=== PATIENT | female | born 1965 | race Caucasian/White ===

== ENCOUNTER 2021-07-13 11:16 | Emergency (ER) | payer SELFPAY ==
[~2021-07-13] VITALS: Ht 157.5 cm; Wt 50.8 kg
[2021-07-13 13:06] LABS: HEMATOCRIT 43.8 % (37.0-47.0); HEMOGLOBIN 14.1 g/dl (12.0-16.0); MEAN CELL VOLUME 94.8 fL CALC (80.0-100.0); MEAN CORPUSCULAR HGB 30.5 pG CALC (26.0-32.0); MEAN CORPUSCULAR HGB CONC 32.2 g/dL CAL (32.0-36.0); NEUT# 5.18 thou/uL (2.00-7.15); RED BLOOD COUNT 4.62 mill/uL (4.20-5.60); RED CELL DISTRI WIDTH 12.1 % (11.5-15.5)
[2021-07-13 13:12] LABS: ALBUMIN 4.2 g/dL (3.2-5.0); ALKALINE PHOSPHATASE 115 u/l (38-126); ANION GAP 11 (6-22 (CALC)); BILIRUBIN, TOTAL 0.6 mg/dL (0.0-1.4); BUN 6 mg/dL (7-17); BUN/CREATININE RATIO 10 (12-20 (CALC)); CARBON DIOXIDE 32 mmol/l (22-30); CHLORIDE 100 mmol/l (95-108); CREATININE 0.6 mg/dL (0.5-1.0); GFR > 60 ML/MIN (>=60 (CALC)); GFR FOR AFR.AMER. > 60 ML/MIN (>=60 (CALC)); POTASSIUM 4.5 mmol/l (3.5-5.1); SGOT/AST 21 u/l (14-36); SODIUM 139 mmol/l (137-146)
[2021-07-13 17:26] VITALS: BP 126/73
== END 2021-07-13 17:27 | disposition short-term general hospital (02) | DRG 156 ==
LOC: ED 11:16
PROVIDERS: Family Medicine
DX: J38.3 Other diseases of vocal cords (principal); I10 Essential (primary) hypertension; J44.9 Chronic obstructive pulmonary disease, unspecified; F17.210 Nicotine dependence, cigarettes, uncomplicated; R63.4 Abnormal weight loss; Z20.822 Contact with and (suspected) exposure to COVID-19
CPT/HCPCS: Q9967

== ENCOUNTER 2022-06-27 16:19 | Emergency (ER) | payer MEDICAID ==
[~2022-06-27] VITALS: Ht 157.5 cm; Wt 48.0 kg
[2022-06-27] VITALS (9 sets, daily range): BP systolic 90–119; BP diastolic 52–60
[2022-06-27] MEDS ORDERED: CELEBREX100 M1 PO (16:38)
[2022-06-27] MEDS ORDERED: LEVOTHYROXIN75 MCG PO (16:39)
[2022-06-27] MEDS ORDERED: MIDODRINE10 MG PO (16:39)
[2022-06-27] MEDS ORDERED: OXYIR5 MG PO (16:40)
[2022-06-27] MEDS ORDERED: GABAPENTIN100 MG PO (16:41)
[2022-06-27 16:56] LABS: IMMATURE GRANULOCYTES 0.3 % (0.0-5.0); MEAN CELL VOLUME 92.9 fL CALC (80.0-100.0); MEAN CORPUSCULAR HGB 29.4 pG CALC (26.0-32.0); MEAN CORPUSCULAR HGB CONC 31.7 g/dL CAL (32.0-36.0); NEUT# 4.74 thou/uL (2.00-7.15); RED BLOOD COUNT 3.64 mill/uL (4.20-5.60); RED CELL DISTRI WIDTH 17.1 % (11.5-15.5)
[2022-06-27 16:59] LABS: HEMATOCRIT 33.8 % (37.0-47.0); HEMOGLOBIN 10.7 g/dl (12.0-16.0)
[2022-06-27 17:14] LABS: INTERNATIONAL NORMALIZED RATIO 1.1 RATIO (0.7-1.3); PROTHROMBIN TIME 10.5 SECONDS (9.0-12.5)
[2022-06-27 17:15] LABS: ALBUMIN 3.8 g/dL (3.2-5.0); ALKALINE PHOSPHATASE 74 u/l (38-126); ANION GAP 13 (6-22 (CALC)); BILIRUBIN, TOTAL 0.3 mg/dL (0.0-1.4); BUN 10 mg/dL (7-17); BUN/CREATININE RATIO 17 (12-20 (CALC)); CARBON DIOXIDE 22 mmol/l (22-30); CHLORIDE 104 mmol/l (95-108); CREATININE 0.6 mg/dL (0.5-1.0); GFR FOR AFR.AMER. > 60 ML/MIN (>=60 (CALC)); GFR OTHER RACES > 60 ML/MIN (>=60 (CALC)); POTASSIUM 3.8 mmol/l (3.5-5.1); SGOT/AST 20 u/l (14-36); SODIUM 135 mmol/l (137-146); TOTAL PROTEIN 6.3 g/dL (6.3-8.2)
== END 2022-06-27 20:56 | disposition short-term general hospital (02) ==
LOC: ED 16:19
PROVIDERS: Family Medicine
DX: K92.0 Hematemesis (principal); C32.9 Malignant neoplasm of larynx, unspecified; J45.909 Unspecified asthma, uncomplicated; F17.210 Nicotine dependence, cigarettes, uncomplicated; Z93.0 Tracheostomy status; Z90.02 Acquired absence of larynx; Z93.1 Gastrostomy status
CPT/HCPCS: J2354; S0164

== ENCOUNTER 2022-07-24 11:41 | Emergency (ER) | payer MEDICAID ==
[~2022-07-24] VITALS: Ht 157.5 cm; Wt 47.7 kg
[~2022-07-24 11:41] MED LIST: CELEBREX100 M1 PO; GABAPENTIN100 MG PO; LEVOTHYROXIN75 MCG PO; MIDODRINE10 MG PO; OXYIR5 MG PO
[2022-07-24 11:49] VITALS: BP 77/47
[2022-07-24 12:00] VITALS: BP 79/55
[2022-07-24 12:20] VITALS: BP 97/55
[2022-07-24 12:29] LABS: HEMATOCRIT 28.6 % (37.0-47.0); HEMOGLOBIN 8.9 g/dl (12.0-16.0); IMMATURE GRANULOCYTES 0.6 % (0.0-5.0); MEAN CORPUSCULAR HGB 30.7 pG CALC (26.0-32.0); MEAN CORPUSCULAR HGB CONC 31.1 g/dL CAL (32.0-36.0); NEUT# 11.97 thou/uL (2.00-7.15); RED BLOOD COUNT 2.9 mill/uL (4.20-5.60); RED CELL DISTRI WIDTH 16.7 % (11.5-15.5)
[2022-07-24 12:30] VITALS: BP 108/70
[2022-07-24 12:40] LABS: ALBUMIN 3.8 g/dL (3.2-5.0); ALKALINE PHOSPHATASE 62 u/l (38-126); ANION GAP 12 (6-22 (CALC)); BILIRUBIN, TOTAL 0.2 mg/dL (0.0-1.4); BUN 13 mg/dL (7-17); BUN/CREATININE RATIO 18 (12-20 (CALC)); CARBON DIOXIDE 20 mmol/l (22-30); CHLORIDE 112 mmol/l (95-108); CREATININE 0.7 mg/dL (0.5-1.0); GFR FOR AFR.AMER. > 60 ML/MIN (>=60 (CALC)); GFR OTHER RACES > 60 ML/MIN (>=60 (CALC)); POTASSIUM 3.5 mmol/l (3.5-5.1); SGOT/AST 22 u/l (14-36); SODIUM 141 mmol/l (137-146); TOTAL PROTEIN 6.2 g/dL (6.3-8.2)
[2022-07-24 12:49] LABS: MEAN CELL VOLUME 98.6 fL CALC (80.0-100.0)
[2022-07-24 13:00] VITALS: BP 95/59
[2022-07-24 13:38] VITALS: BP 95/59
== END 2022-07-24 13:20 | disposition short-term general hospital (02) ==
LOC: ED 11:41
PROVIDERS: Family Medicine
DX: K92.0 Hematemesis (principal); J45.909 Unspecified asthma, uncomplicated; Z87.19 Personal history of other diseases of the digestive system; Z85.21 Personal history of malignant neoplasm of larynx; Z90.02 Acquired absence of larynx; Z93.1 Gastrostomy status; Z93.0 Tracheostomy status; Z20.822 Contact with and (suspected) exposure to COVID-19
CPT/HCPCS: J2354; P9016; S0164

== ENCOUNTER 2022-09-03 08:37 | Emergency (ER) | payer MEDICAID ==
[2022-09-03] VITALS (7 sets, daily range): BP systolic 78–114; BP diastolic 54–66
[~2022-09-03] VITALS: Ht 157.5 cm; Wt 53.8 kg
[2022-09-03] MEDS ORDERED: PANTOPRAZOLE SO40 M1 PO (09:21)
[2022-09-03 09:30] LABS: BASO% 0.3 % (0-3); EOS% 1.4 % (0-8); HEMATOCRIT 29.1 % (37.0-47.0); HEMOGLOBIN 9.2 g/dl (12.0-16.0); IMMATURE GRANULOCYTES 0.3 % (0.0-5.0); LYMPH% 8.1 % (15-41); MEAN CELL VOLUME 93.6 fL CALC (80.0-100.0); MEAN CORPUSCULAR HGB 29.6 pG CALC (26.0-32.0); MEAN CORPUSCULAR HGB CONC 31.6 g/dL CAL (32.0-36.0); MONO% 8.6 % (2-13); NEUT# 7.76 thou/uL (2.00-7.15); NEUT% 81.3 % (42-76); RED BLOOD COUNT 3.11 mill/uL (4.20-5.60); RED CELL DISTRI WIDTH 14.5 % (11.5-15.5)
[2022-09-03 09:43] LABS: ALBUMIN 3.9 g/dL (3.2-5.0); ALKALINE PHOSPHATASE 62 u/l (38-126); BUN 9 mg/dL (7-17); BUN/CREATININE RATIO 13 (12-20 (CALC)); CHLORIDE 105 mmol/l (95-108); CREATININE 0.7 mg/dL (0.5-1.0); GFR FOR AFR.AMER. > 60 ML/MIN (>=60 (CALC)); GFR OTHER RACES > 60 ML/MIN (>=60 (CALC)); LIPASE 104 u/l (23-300); POTASSIUM 4.2 mmol/l (3.5-5.1); SGOT/AST 21 u/l (14-36); SODIUM 137 mmol/l (137-146); TOTAL PROTEIN 6.4 g/dL (6.3-8.2)
[2022-09-03 09:47] LABS: ANION GAP 6 (6-22 (CALC)); BILIRUBIN, TOTAL 0.1 mg/dL (0.0-1.4); CARBON DIOXIDE 30 mmol/l (22-30)
== END 2022-09-03 10:26 | disposition home or self-care (01) ==
LOC: ED 08:37
PROVIDERS: Family Medicine
DX: K92.0 Hematemesis (principal); F17.210 Nicotine dependence, cigarettes, uncomplicated; Z90.02 Acquired absence of larynx; Z93.0 Tracheostomy status; Z85.21 Personal history of malignant neoplasm of larynx; Z93.1 Gastrostomy status

== ENCOUNTER 2022-09-10 10:28 | Observation (INO) | payer MEDICAID ==
[~2022-09-10] VITALS: Ht 157.5 cm; Wt 51.6 kg
[2022-09-10] VITALS (12 sets, daily range): BP systolic 103–111; BP diastolic 39–58
[~2022-09-10 10:28] MED LIST changes: +PANTOPRAZOLE SO40 M1 PO
[2022-09-10 11:31] LABS: BASO% 0.4 % (0-3); EOS% 0.9 % (0-8); IMMATURE GRANULOCYTES 0.3 % (0.0-5.0); LYMPH% 13.2 % (15-41); MEAN CELL VOLUME 93.6 fL CALC (80.0-100.0); MEAN CORPUSCULAR HGB 27.9 pG CALC (26.0-32.0); MEAN CORPUSCULAR HGB CONC 29.8 g/dL CAL (32.0-36.0); MONO% 8.1 % (2-13); NEUT# 5.82 thou/uL (2.00-7.15); NEUT% 77.1 % (42-76); RED BLOOD COUNT 2.19 mill/uL (4.20-5.60); RED CELL DISTRI WIDTH 15.6 % (11.5-15.5)
[2022-09-10 11:36] LABS: HEMOGLOBIN 6.1 g/dl (12.0-16.0)
[2022-09-10 11:37] LABS: HEMATOCRIT 20.5 % (37.0-47.0)
[2022-09-10 11:40] LABS: ALBUMIN 4.3 g/dL (3.2-5.0); ALKALINE PHOSPHATASE 73 u/l (38-126); ANION GAP 10 (6-22 (CALC)); BUN 10 mg/dL (7-17); BUN/CREATININE RATIO 14 (12-20 (CALC)); CARBON DIOXIDE 26 mmol/l (22-30); CHLORIDE 107 mmol/l (95-108); CREATININE 0.7 mg/dL (0.5-1.0); GFR FOR AFR.AMER. > 60 ML/MIN (>=60 (CALC)); GFR OTHER RACES > 60 ML/MIN (>=60 (CALC)); POTASSIUM 4.3 mmol/l (3.5-5.1); SGOT/AST 24 u/l (14-36); SODIUM 139 mmol/l (137-146)
[2022-09-11 00:40] LABS: BASO% 0.4 % (0-3); EOS% 2.5 % (0-8); HEMATOCRIT 23.8 % (37.0-47.0); HEMOGLOBIN 7.5 g/dl (12.0-16.0); IMMATURE GRANULOCYTES 0.1 % (0.0-5.0); LYMPH% 18.7 % (15-41); MEAN CELL VOLUME 91.5 fL CALC (80.0-100.0); MEAN CORPUSCULAR HGB 28.8 pG CALC (26.0-32.0); MEAN CORPUSCULAR HGB CONC 31.5 g/dL CAL (32.0-36.0); NEUT# 4.6 thou/uL (2.00-7.15); NEUT% 67.3 % (42-76); RED BLOOD COUNT 2.6 mill/uL (4.20-5.60); RED CELL DISTRI WIDTH 14.8 % (11.5-15.5)
[2022-09-11 00:52] LABS: ALBUMIN 3.5 g/dL (3.2-5.0); ALKALINE PHOSPHATASE 61 u/l (38-126); ANION GAP 6 (6-22 (CALC)); BUN 9 mg/dL (7-17); BUN/CREATININE RATIO 13 (12-20 (CALC)); CARBON DIOXIDE 27 mmol/l (22-30); CHLORIDE 107 mmol/l (95-108); CREATININE 0.7 mg/dL (0.5-1.0); GFR FOR AFR.AMER. > 60 ML/MIN (>=60 (CALC)); GFR OTHER RACES > 60 ML/MIN (>=60 (CALC)); MAGNESIUM 2.4 mg/dL (1.6-2.3); SGOT/AST 18 u/l (14-36); SODIUM 136 mmol/l (137-146); TOTAL PROTEIN 5.7 g/dL (6.3-8.2)
[2022-09-11 00:54] LABS: BILIRUBIN, TOTAL 0.2 mg/dL (0.02-1.3)
[2022-09-11 03:37] VITALS: BP 90/44
[2022-09-11 04:00] VITALS: BP 90/44
[2022-09-11 06:33] VITALS: BP 103/54
[2022-09-11 10:43] VITALS: BP 105/54
[2022-09-11 10:55] LABS: HEMATOCRIT 24.5 % (37.0-47.0); HEMOGLOBIN 7.8 g/dl (12.0-16.0)
[2022-09-11 15:59] VITALS: BP 107/50
[2022-09-11] MEDS ORDERED: PANTOPRAZOLE SO40 M1 PO (17:39)
[2022-09-11] MEDS ORDERED: CARAFATE PO (17:39)
[2022-09-11] MEDS ORDERED: FERROUS SULF325 M3 PO (17:40)
[2022-09-11 18:54] VITALS: BP 100/45
== END 2022-09-11 19:10 | disposition home or self-care (01) ==
LOC: ED 10:28 → ED-I 11:50 → ED 12:08 → MS2 12:09
PROVIDERS: Emergency Medicine; ADMIT Internal Medicine; ATTEND Internal Medicine
DX: D62 Acute posthemorrhagic anemia (principal); K92.2 Gastrointestinal hemorrhage, unspecified; I95.9 Hypotension, unspecified; G89.29 Other chronic pain; J45.909 Unspecified asthma, uncomplicated; E03.9 Hypothyroidism, unspecified; F17.200 Nicotine dependence, unspecified, uncomplicated; Z93.0 Tracheostomy status; Z92.3 Personal history of irradiation; Z92.21 Personal history of antineoplastic chemotherapy; Z85.21 Personal history of malignant neoplasm of larynx; Z90.02 Acquired absence of larynx
CPT/HCPCS: G0378; P9016

== ENCOUNTER 2022-09-18 22:52 | Observation (INO) | payer MEDICAID ==
[~2022-09-18] VITALS: Ht 157.5 cm; Wt 57.0 kg
[~2022-09-18 22:52] MED LIST changes: +CARAFATE PO; +FERROUS SULF325 M3 PO
[2022-09-18 23:00] VITALS: BP 100/56
[2022-09-18 23:16] VITALS: BP 96/52
[2022-09-18 23:30] VITALS: BP 84/47
[2022-09-18 23:33] LABS: BASO% 0.4 % (0-3); EOS% 2.5 % (0-8); HEMATOCRIT 24.9 % (37.0-47.0); HEMOGLOBIN 7.6 g/dl (12.0-16.0); IMMATURE GRANULOCYTES 0.6 % (0.0-5.0); LYMPH% 20.9 % (15-41); MEAN CELL VOLUME 91.2 fL CALC (80.0-100.0); MEAN CORPUSCULAR HGB 27.8 pG CALC (26.0-32.0); MEAN CORPUSCULAR HGB CONC 30.5 g/dL CAL (32.0-36.0); MONO% 8.3 % (2-13); NEUT# 5.19 thou/uL (2.00-7.15); NEUT% 67.3 % (42-76); RED BLOOD COUNT 2.73 mill/uL (4.20-5.60); RED CELL DISTRI WIDTH 16.8 % (11.5-15.5)
[2022-09-18 23:43] LABS: ALBUMIN 4.2 g/dL (3.2-5.0); ALKALINE PHOSPHATASE 80 u/l (38-126); BUN 7 mg/dL (7-17); BUN/CREATININE RATIO 9 (12-20 (CALC)); CARBON DIOXIDE 24 mmol/l (22-30); CHLORIDE 105 mmol/l (95-108); CREATININE 0.7 mg/dL (0.5-1.0); GFR FOR AFR.AMER. > 60 ML/MIN (>=60 (CALC)); GFR OTHER RACES > 60 ML/MIN (>=60 (CALC)); SGOT/AST 26 u/l (14-36); SODIUM 136 mmol/l (137-146); TOTAL PROTEIN 6.8 g/dL (6.3-8.2)
[2022-09-18 23:44] LABS: ANION GAP 10 (6-22 (CALC)); POTASSIUM 3.1 mmol/l (3.5-5.1)
[2022-09-18 23:50] VITALS: BP 106/46
[2022-09-19] VITALS (22 sets, daily range): BP systolic 86–131; BP diastolic 43–74
== END 2022-09-19 14:20 | disposition home or self-care (01) ==
LOC: ED 22:52 → ED-I 09-19 01:49 → ED 09-19 02:07 → MS2 09-19 02:07
PROVIDERS: Emergency Medicine; ADMIT Internal Medicine; ATTEND Internal Medicine
DX: D64.9 Anemia, unspecified (principal); J95.01 Hemorrhage from tracheostomy stoma; J45.909 Unspecified asthma, uncomplicated; F17.200 Nicotine dependence, unspecified, uncomplicated; Y83.3 Surgical operation with formation of external stoma as the cause of abnormal reaction of the patient, or of later complication, without mention of misadventure at the time of the procedure; Z85.21 Personal history of malignant neoplasm of larynx; Z90.02 Acquired absence of larynx
CPT/HCPCS: G0378; P9016; Q9967